=== PATIENT | male | born 1960 | race Caucasian/White ===

== ENCOUNTER 2017-05-14 14:47 | Observation (INO) | payer OTHER ==
[~2017-05-14] VITALS: Ht 182.9 cm; Wt 95.9 kg
[2017-05-14 15:56] LABS: BASOPHIL COUNT 0.1 K/uL (0-0.1); EOSINOPHIL (%) 2.5 % (0-5); EOSINOPHIL COUNT 0.3 K/uL (0-0.3); HEMATOCRIT 41.6 % (38.0-50.0); IMMATURE GRANULOCYTE (%) 0.4 % (0.0-0.7); IMMATURE GRANULOCYTE COUNT 0.1 K/uL; INSTRUMENT ABS NEUTROPHIL CT 8.3 K/uL; LYMPHOCYTE COUNT 2.4 K/uL (1.0-2.8); MCHC 33.7 G/DL (30.0-36.0); MCV 89.1 FL (86-99); MEAN PLAT.VOLUME 9.6 uM^3 (9.0-12.4); MONOCYTE (%) 3.7 % (3-12); MONOCYTE COUNT 0.4 K/uL (0-0.8); NEUTROPHIL COUNT 8.3 K/uL (1.8-6.4); PLATELET COUNT 236 K/uL (156-360); RBC DIS.WIDTH-CV 12.8 % (11.8-14.6); RBC DIS.WIDTH-SD 42.2 % (39-53); RED BLOOD COUNT 4.67 M/uL (4.00-5.50); WHITE BLOOD COUNT 11.6 K/uL (4.1-10.2)
[2017-05-14 16:06] LABS: PROTHROMBIN TIME 11.1 SEC (10.2-12.9)
[2017-05-14 16:07] LABS: CHLORIDE 108 mEq/L (99-109); POTASSIUM 4.1 mEq/L (3.7-5.4); SODIUM 141 mEq/L (136-147)
[2017-05-14 16:09] LABS: GLUCOSE 87 mg/dL (70-99); PTT 34.9 SEC (25-37)
[2017-05-14 16:10] LABS: ANION GAP 8 MEQ/L (2-14)
[2017-05-14 16:13] LABS: GFR ESTIMATE (CALCULATED) > 59 mL/min/; UREA NITROGEN (BUN) 10 mg/dL (9-23)
[2017-05-14 16:20] LABS: TROP-I INTERPRETATION NEGATIVE; TROPONIN-I < 0.01 ng/mL (0.0-0.30)
[2017-05-14] MEDS ORDERED: FOLIC ACID1 MG PO (19:05)
[2017-05-14] MEDS ORDERED: ABILIFY30 MG PO (19:05)
[2017-05-14] MEDS ORDERED: ASPIR 8181 M1 PO (19:06)
[2017-05-14] MEDS ORDERED: LEXAPRO20 MG PO (19:07)
[2017-05-14] MEDS ORDERED: REMERON30 M2 PO (19:07)
[2017-05-14] MEDS ORDERED: DEPAKOTE ER250 MG PO (19:08)
[2017-05-14] MEDS ORDERED: NICODERM CQ1 EAC2 TD (19:09)
[2017-05-14 21:11] VITALS: BP 118/77
[2017-05-14 22:16] LABS: TROP-I INTERPRETATION NEGATIVE; TROPONIN-I < 0.01 ng/mL (0.0-0.30)
[2017-05-14 22:20] LABS: ALKALINE PHOSPHATASE 84 IU/L (3-129); LIPASE 21 U/L (1.0-51.0); TOTAL BILIRUBIN 0.3 MG/DL (0.0-1.0)
[2017-05-14 23:26] VITALS: BP 114/66
[2017-05-15 03:24] VITALS: BP 113/70
[2017-05-15 04:07] LABS: AMPHETAMINES QUANT VALUE 0 NG/ML; BARBITUATES QUANT VALUE 0 NG/ML; BENZODIAZEPINES QUANT VALUE 0 NG/ML; BENZODIAZEPINES, URINE SCREEN Negative (200 ng/mL); MARIJUANA QUANT VALUE 0 NG/ML; OPIATES QUANTITATIVE VALUE 0 NG/ML; PHENCYCLIDINE QUANT VALUE 0 NG/ML
[2017-05-15 04:22] LABS: TROP-I INTERPRETATION NEGATIVE; TROPONIN-I < 0.01 ng/mL (0.0-0.30)
[2017-05-15 08:24] VITALS: BP 132/61
[2017-05-15 11:39] VITALS: BP 134/73
[2017-05-15] MEDS ORDERED: CRESTOR10 MG PO (15:23)
== END 2017-05-15 16:10 | disposition home or self-care (01) ==
LOC: EME 14:47 → EDOF 19:35 → ENRESERV 19:37 → 5WEST 21:02
PROVIDERS: Hospitalist; Physician Assistant
DX: R07.89 Other chest pain (principal); F31.9 Bipolar disorder, unspecified; F17.210 Nicotine dependence, cigarettes, uncomplicated; R20.0 Anesthesia of skin; I25.10 Atherosclerotic heart disease of native coronary artery without angina pectoris; I25.2 Old myocardial infarction; Z82.49 Family history of ischemic heart disease and other diseases of the circulatory system; J41.0 Simple chronic bronchitis; Z79.82 Long term (current) use of aspirin; Z80.0 Family history of malignant neoplasm of digestive organs
CPT/HCPCS: 71020; 80048; 80076; 80306 90; 83690; 84484; 85025; 85610; 85730; 93005; 99281; 99285; G0378